=== PATIENT | male | born 1975 | race Caucasian/White ===

== ENCOUNTER 2024-07-13 00:48 | Inpatient (IN) | payer BC, OTHER ==
[~2024-07-13] VITALS: Ht 170.2 cm; Wt 71.7 kg
[2024-07-13] MEDS ORDERED: PANTOPRAZOLE 40 MG VIAL ONE (01:29)
[2024-07-13] MEDS ORDERED: ONDANSETRON HCL/PF 4 MG/2 ML VIAL ONE (01:29)
[2024-07-13] MEDS ORDERED: MORPHINE SULFATE INJ 2 MG/ML DISP.SYRIN ONE (01:30)
[2024-07-13 01:31] LABS: BASOPHILS % (AUTO) 0.3 % (0.0-2.0); HEMATOCRIT 49 % (39-51); HEMOGLOBIN 16.6 g/dL (13.5-17.5); LYMPHOCYTES % (AUTO) 8.4 % (20.0-44.0); MEAN CORPUSCULAR HEMOGLOBIN 29 PG (26.0-33.0); MEAN CORPUSCULAR HGB CONC 34 g/dl (31.0-36.0); MEAN CORPUSCULAR VOLUME 86 fL (80-96); MONOCYTES # (AUTO) 0.6 K/uL (0.1-1.30); MONOCYTES % (AUTO) 4.6 % (2.0-12.0); NEUTROPHILS # (AUTO) 10.7 K/uL (1.8-8.9); NEUTROPHILS % (AUTO) 86.7 % (43.0-81.0); PLATELET COUNT (AUTO) 312 K/uL (150-450); RED BLOOD CELL COUNT(AUTO) 5.76 MIL/uL (4.5-6.0); RED CELL DISTRIBUTION WIDTH 13.2 % (11.5-15.0); WHITE BLOOD COUNT (AUTO) 12.3 K/uL (4.3-11.0)
[2024-07-13] MEDS: IV NS 0.9% 1,000 ML BAG IV ONE (01:53)
[2024-07-13] MEDS: MORPHINE SULFATE INJ 2 MG/ML DISP.SYRIN IV ONE (01:54)
[2024-07-13] MEDS: PANTOPRAZOLE 80 MG in IV NS 0.9% 100 ML IV ONE (01:54)
[2024-07-13] MEDS: PANTOPRAZOLE 80 MG in IV NS 0.9% 500 ML IV ONE (01:56)
[2024-07-13] MEDS: ONDANSETRON HCL/PF 4 MG/2 ML VIAL IVP ONE (01:56)
[2024-07-13 01:57] LABS: CALCIUM, SERUM 9.1 mg/dL (8.5-10.1); CARBON DIOXIDE 30 mmol/L (21-32); CHLORIDE 97 mmol/L (98-107); CREATININE 0.9 mg/dL (0.6-1.3); GLUCOSE 147 mg/dL (74-106); SODIUM SERUM 134 mmol/L (136-145); UREA NITROGEN, BLOOD 25 mg/dL (7-18)
[2024-07-13 02:01] LABS: INR 0.96 (0.91-1.10); PARTIAL THROMBOPLASTIN TIME 26.9 SEC (24.3-34.3); PROTHROMBIN TIME 10.2 SECS (9.2-11.1)
[2024-07-13 02:02] LABS: ALANINE AMINOTRANSFERASE 35 U/L (12-78); ALBUMIN 3.6 g/dL (3.4-5.0); ALKALINE PHOSPHATASE 102 U/L (46-116); ASPARTATE AMINOTRANSFERASE 31 U/L (15-37); BILIRUBIN,DIRECT 0.3 mg/dL (0.0-0.2); BILIRUBIN,TOTAL 0.7 mg/dL (0.2-1.0); LIPASE 44 U/L (16-77); TOTAL PROTEIN, SERUM 7.6 g/dL (6.4-8.2)
[2024-07-13] MEDS ORDERED: ZOLPIDEM TARTRATE 5 MG TABLET PO PRN (03:00)
[2024-07-13] MEDS ORDERED: Z GUARD REMEDY 4 OZ OINT TP PRN (03:00)
[2024-07-13] MEDS ORDERED: MAGNESIUM HYDROXIDE 30 ML UDC PO PRN (03:00)
[2024-07-13] MEDS ORDERED: ACETAMINOPHEN 325 MG TABLET PO PRN (03:00)
[2024-07-13] MEDS ORDERED: MAG HYDROX/AL HYDROX/SIMETH 30 ML UDC PO PRN (03:00)
[2024-07-13 06:22] LABS: APPEARANCE,URINE CLOUDY (CLEAR); BILIRUBIN,URINE 1+ (NEGATIVE); BLOOD, URINE TRACE-INTA Ery/uL (NEGATIVE); COLOR,URINE YELLOW (YELLOW); KETONES,URINE TRACE mg/dL (NEGATIVE); LEUKOCYTE ESTERASE ,URINE NEGATIVE (NEGATIVE); NITRITE, URINE NEGATIVE (NEGATIVE); PROTEIN,URINE TRACE mg/dl (NEGATIVE); UGLUCOSE NEGATIVE (NEGATIVE)
[2024-07-13 06:41] LABS: BACTERIA,URINE Many /HPF (None Seen)
[2024-07-13 06:45] LABS: ADD URINE CULTURE YES; SQUAMOUS EPITHELIAL CELL,UR Few /HPF (None Seen); WBC,URINE 0-2 /HPF (0-3)
[2024-07-13] MEDS: PANTOPRAZOLE 40 MG VIAL IV SCH (11:41)
[2024-07-13] MEDS: IV NS 0.9% 1,000 ML IV PRN (11:41)
[2024-07-13 13:32] LABS: HEMOGLOBIN 15.5 g/dL (13.5-17.5)
[2024-07-13] MEDS: MORPHINE SULFATE INJ 2 MG/ML DISP.SYRIN IV PRN (14:10)
[2024-07-13 16:00] VITALS: BP 143/89; TEMP 97.7; O2SAT 100
[2024-07-13] MEDS: ONDANSETRON HCL/PF 4 MG/2 ML VIAL IVP PRN (18:47)
[2024-07-13 20:00] VITALS: BP 128/82; TEMP 99; O2SAT 97
[2024-07-14] VITALS: BP 130/78; TEMP 98.2; O2SAT 96; O2SAT 98
[2024-07-14 04:00] VITALS: BP 129/88; TEMP 98.6; O2SAT 99
[2024-07-14 08:00] VITALS: BP_SYST 114; BP_SYST 125; BP_DIAS 73; BP_DIAS 76; TEMP 97.6; TEMP 98.2; O2SAT 97; O2SAT 98
[2024-07-14 08:17] LABS: BASOPHILS % (AUTO) 0.3 % (0.0-2.0); EOSINOPHILS % (AUTO) 0.5 % (0.0-6.0); HEMATOCRIT 45 % (39-51); HEMOGLOBIN 15.1 g/dL (13.5-17.5); LYMPHOCYTES # (AUTO) 2.3 K/uL (0.8-4.8); LYMPHOCYTES % (AUTO) 29.7 % (20.0-44.0); MEAN CORPUSCULAR HEMOGLOBIN 29 PG (26.0-33.0); MEAN CORPUSCULAR HGB CONC 34 g/dl (31.0-36.0); MEAN CORPUSCULAR VOLUME 86 fL (80-96); MONOCYTES # (AUTO) 0.9 K/uL (0.1-1.30); MONOCYTES % (AUTO) 11.1 % (2.0-12.0); NEUTROPHILS # (AUTO) 4.5 K/uL (1.8-8.9); NEUTROPHILS % (AUTO) 58.4 % (43.0-81.0); PLATELET COUNT (AUTO) 273 K/uL (150-450); RED BLOOD CELL COUNT(AUTO) 5.18 MIL/uL (4.5-6.0); WHITE BLOOD COUNT (AUTO) 7.7 K/uL (4.3-11.0)
[2024-07-14] MEDS ORDERED: PANT40TA2 PO (08:34)
[2024-07-14 12:00] VITALS: BP 118/74; TEMP 98.4; O2SAT 100
[2024-07-14 12:35] LABS: ALBUMIN 3.3 g/dL (3.4-5.0); BILIRUBIN,TOTAL 0.9 mg/dL (0.2-1.0); CALCIUM, SERUM 8.2 mg/dL (8.5-10.1); MAGNESIUM 2.1 mg/dL (1.8-2.4); PHOSPHORUS 3.1 mg/dL (2.5-4.9); POTASSIUM 3.9 mmol/L (3.5-5.1); TOTAL PROTEIN, SERUM 6.9 g/dL (6.4-8.2)
[2024-07-14 16:00] VITALS: BP 122/82; TEMP 98.1; O2SAT 99
[2024-07-15] VITALS: BP 130/80; TEMP 98.4; O2SAT 98
[2024-07-15 04:00] VITALS: BP 119/85; TEMP 98.2; O2SAT 98
[2024-07-15 08:00] VITALS: BP 118/74; TEMP 97.9; O2SAT 96
[2024-07-15] MEDS ORDERED: PANT40TA2 PO (08:41)
[2024-07-15] MEDS: BISACODYL (5 MG) 5 MG TABLET.DR PO ONE (08:55)
[2024-07-15 09:36] LABS: BASOPHILS % (AUTO) 0.4 % (0.0-2.0); EOSINOPHILS # (AUTO) 0.1 K/uL (0.0-0.7); EOSINOPHILS % (AUTO) 1.4 % (0.0-6.0); HEMATOCRIT 44 % (39-51); LYMPHOCYTES # (AUTO) 2.1 K/uL (0.8-4.8); LYMPHOCYTES % (AUTO) 33.9 % (20.0-44.0); MEAN CORPUSCULAR HEMOGLOBIN 29 PG (26.0-33.0); MEAN CORPUSCULAR HGB CONC 34 g/dl (31.0-36.0); MEAN CORPUSCULAR VOLUME 86 fL (80-96); MONOCYTES # (AUTO) 0.9 K/uL (0.1-1.30); MONOCYTES % (AUTO) 14.2 % (2.0-12.0); NEUTROPHILS % (AUTO) 50.1 % (43.0-81.0); PLATELET COUNT (AUTO) 283 K/uL (150-450); RED BLOOD CELL COUNT(AUTO) 5.15 MIL/uL (4.5-6.0); RED CELL DISTRIBUTION WIDTH 12.6 % (11.5-15.0); WHITE BLOOD COUNT (AUTO) 6.1 K/uL (4.3-11.0)
[2024-07-15 09:50] LABS: CALCIUM, SERUM 8.3 mg/dL (8.5-10.1); CREATININE 1.3 mg/dL (0.6-1.3); MAGNESIUM 2.1 mg/dL (1.8-2.4); POTASSIUM 3.9 mmol/L (3.5-5.1)
[2024-07-15 10:05] LABS: THYROID STIMULATING HORMONE 3.78 uIU/mL (0.358-3.74)
[2024-07-15 12:00] VITALS: BP 127/91; TEMP 97.9; O2SAT 96
== END 2024-07-15 16:55 | disposition home or self-care (01) | DRG 379 ==
LOC: ER 00:54 → TELE 07:36
PROVIDERS: ADMIT Internal Medicine; ATTEND Internal Medicine
PROC: 0DB68ZX Excision of Stomach, Via Natural or Artificial Opening Endoscopic, Diagnostic (ICD-10-PCS; principal; 2024-07-14)
DX: K29.01 Acute gastritis with bleeding (principal); I49.8 Other specified cardiac arrhythmias; K20.90 Esophagitis, unspecified without bleeding; E78.5 Hyperlipidemia, unspecified; I10 Essential (primary) hypertension; R11.2 Nausea with vomiting, unspecified; G47.30 Sleep apnea, unspecified; E86.1 Hypovolemia
CPT/HCPCS: 36415; 71045-TC; 80048-TC; 80053-TC; 80076-TC; 81001; 83690-TC; 83735-TC; 84100-TC; 84443-TC; 84484-TC; 85025-TC; 85027-TC; 85730-TC; 86850-TC; 87086-TC; A4223; G0378; J2270; J2405; J2470; J2704; J7030; J7040